=== PATIENT | male | born 1995 | race Caucasian/White ===

== ENCOUNTER 2016-07-16 16:54 | Emergency (ER) | payer MEDICAID, OTHER ==
[~2016-07-16] VITALS: Ht 167.6 cm; Wt 67.0 kg
[~2016-07-16 16:54] MED LIST: AMOX500C PO; CORT1SOL LEFT EAR; DICL50TA3 PO
[2016-07-16 16:55] VITALS: BP 139/64; PULSE 88; RESP 20; TEMP 98; O2SAT 95
--- NOTE | 2016-07-16 17:32 | PD ---
HPI Chief Complaint: ENT Complaint Time Seen by Provider: 17:29 Travel History International Travel<30 days: No Contact w/Intl Traveler<30days: No Traveled to known affect area: No History of Present Illness HPI Patient comes in complaining of cough and sore throat that began yesterday. Patient states cough is productive first thing in the morning but dry otherwise. Patient reports when he awoke today he felt very congested as well that has improved. Patient is uncertain if he had any fevers or not. Denies any nausea, vomiting, diarrhea, abdominal pain, chest pain, or shortness of breath. Denies doing anything for this prior coming to the emergency department. Patient reports his son's home sick with similar symptoms that started yesterday as well. 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) Diabetes: No Diminished Hearing: No Gastrointestinal Disorders: No Headaches: No Musculoskeletal: No Neurologic: No Psychiatric: Yes (ODD) Reproductive: No Respiratory: No Immunizations Current: Yes Migraines: No Seizures: No Thyroid Disease: No Ulcer: No Past Surgical History Appendectomy: No Cholecystectomy: No Genitourinary Surgery: No Other Surgery: Yes (ORAL SURGERY) Social History Alcohol Use: Yes (VODKA) Tobacco Use: No Substance Use: Yes (MARIJUANA & NICOTINE) Allergies-Medications (Allergen,Severity, Reaction): Coded Allergies: Bupropion (Verified Allergy, Severe, 07/16/16) Reported Meds & Prescriptions Reported Meds & Active Scripts Active Diclofenac Sodium DR (Diclofenac Sodium) 50 Mg Tabdr 50 Mg PO TID Cortisporin HC Otic Drops (Meqitgeq-Cxoxuaqmk-KO Otic Drops) 3.5-10,000-1 Mg- Units-% Soln 4 Drop LEFT EAR QID Amoxicillin 500 Mg Cap 500 Mg PO TID Review of Systems Except as stated in HPI: all other systems reviewed are Neg Physical Exam Narrative GENERAL: Well-developed, well nourished, in no acute distress, and non-ill appearing. SKIN: Warm and dry. HEAD: Atraumatic. Normocephalic. EYES: Pupils equal and round. EOMI. No scleral icterus. No injection or drainage. ENT: No nasal bleeding or discharge. Mucous membranes pink and moist. Tympanic membranes are pearly ledesma bilaterally. Uvula is midline. Posterior pharynx mildly erythematous without exudate. No tenderness to facial sinuses to palpation. NECK: Trachea midline. No cervical lymphadenopathy. Supple. No nuclear rigidity. CARDIOVASCULAR: Regular rate and rhythm. No murmur appreciated. RESPIRATORY: No accessory muscle use. No respiratory distress. Clear to auscultation. Breath sounds equal bilaterally. MUSCULOSKELETAL: No obvious deformities. No clubbing. No cyanosis. No edema. Full range of motion. NEUROLOGICAL: Awake and alert. No obvious cranial nerve deficits. Motor grossly within normal limits. Normal speech. PSYCHIATRIC: Appropriate mood and affect; insight and judgment normal. Data Data Last Documented VS Vital Signs Date Time Temp Pulse Resp B/P Pulse Ox O2 Delivery O2 Flow Rate FiO2 07/16/16 16:55 98.0 88 20 139/64 95 Room Air Orders Group A Rapid Strep Screen (07/16/16 17:28) Influenzae A/B Antigen (07/16/16 17:28) Strep Culture (Group A) (07/16/16 17:40) MDM Medical Decision Making Medical Screen Exam Complete: Yes Emergency Medical Condition: Yes Differential Diagnosis Influenza, strep pharyngitis, viral pharyngitis, upper respiratory infection, viral syndrome, other Narrative Course Patients symptom complex of cough and congestion is consistent with viral URI. The patient is non-ill appearing and is in no respiratory distress and comfortable. The patient moves air well and oxygen saturations are normal. There is no clinical evidence to suggest pneumonia at this time. Plan of care and management were discussed with the patient who agreed with plan. The patient was instructed to follow up with their physician and instructed to return if worsens, progressively worsening shortness of breath or difficulty breathing, persistent fever, chest pains or discomfort, inability to keep medication or fluids down with or without vomiting, or as needed. Patient in no obvious distress upon re-evaluation. All pertinent laboratory result(s) discussed with patient. Any questions/concerns in reference to patient diagnosis/condition discussed and clarified prior to patient's discharge. Reinforced sheer importance of close follow up with patient's primary physician or primary care clinic. Instructed patient to return to ED immediately, if symptoms return/worsen. Pt showed understanding of above instructions. Further instructions and recommendations were detailed in discharge paperwork. Pt ambulated without difficulty out of ED at discharge. Diagnosis Primary Impression: Upper respiratory infection Qualified Code: J06.9 - Viral upper respiratory tract infection Patient Instructions: General Instructions, Upper Respiratory Infection (ED) Additional Instructions: Follow-up with your primary care physician in 3-5 days for reevaluation. Use [id number] cold and flu medication as needed for symptomatic relief. Follow instructions on the packaging. Drink plenty of non-caffeinated and nonalcoholic fluids. Return to the emergency department if symptoms get worse. Disposition: 01 DISCHARGE HOME Condition: Stable Vish Laguna Jul 16, 2016 17:31
== END 2016-07-16 18:53 | disposition home or self-care (01) ==
LOC: NEPB 16:54
DX: J06.9 Acute upper respiratory infection, unspecified (principal); R05 Cough
CPT/HCPCS: 87081; 87804; 87880; 99283

== ENCOUNTER 2016-07-18 07:56 | Emergency (ER) | payer MEDICAID, OTHER ==
[~2016-07-18] VITALS: Ht 170.2 cm; Wt 68.0 kg
[2016-07-18 07:57] VITALS: BP 136/67; PULSE 86; RESP 15; TEMP 98.1; O2SAT 98
[2016-07-18] MEDS ORDERED: PHEN1LIQ60 (08:23)
[2016-07-18] MEDS ORDERED: MOME17I EACH NARE (08:33)
[2016-07-18] MEDS ORDERED: BENZ100 PO (08:33)
--- NOTE | 2016-07-18 08:34 | PD ---
HPI Chief Complaint: Cold / Flu Symptoms Time Seen by Provider: 08:27 Travel History International Travel<30 days: No Contact w/Intl Traveler<30days: No Traveled to known affect area: No History of Present Illness HPI 21-year-old male presents to the emergency Department with complaint of cough, nasal congestion, sore throat, fever 3 days. Reports MAXIMUM TEMPERATURE of 101.0. Denies ear pain. Denies lump in throat, difficulty swallowing, unusual drooling. Denies wheezing. Denies chest pain, shortness of breath. Denies nausea, vomiting. Has taken NyQuil with minimal relief of symptoms. His son has similar symptoms. Has not received influenza vaccine. Allergies to bupropion. Denies significant past medical history. No other modifying factors or associated signs and symptoms. 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) Diabetes: No Diminished Hearing: No Gastrointestinal Disorders: No Headaches: No Musculoskeletal: No Neurologic: No Psychiatric: Yes (ODD) Reproductive: No Respiratory: No Immunizations Current: Yes Migraines: No Seizures: No Thyroid Disease: No Ulcer: No Past Surgical History Appendectomy: No Cholecystectomy: No Genitourinary Surgery: No Other Surgery: Yes (ORAL SURGERY) Social History Alcohol Use: Yes (VODKA) Tobacco Use: No Substance Use: Yes (MARIJUANA & NICOTINE) Allergies-Medications (Allergen,Severity, Reaction): Coded Allergies: Bupropion (Verified Allergy, Severe, 07/16/16) Reported Meds & Prescriptions Reported Meds & Active Scripts Active Tessalon Perles (Benzonatate) 100 Mg Cap 100 Mg PO TID PRN Nasonex Nasal [place] (Mometasone Furoate) 50 Mcg/Act Naspr 2 [place] EACH NARE DAILY PRN Reported Nyquil Severe Cold/Flu Liq (Kdiqhsmwpcfib-Cierjiqfzu-XP-Apap Liq) 5-6.25-10-325 Mg/15 Ml Liq Review of Systems Except as stated in HPI: all other systems reviewed are Neg Physical Exam Narrative GENERAL: Well-nourished, well-developed male patient, in no acute distress; afebrile, nontoxic-appearing SKIN: Warm and dry. No rash. HEAD: Atraumatic. Normocephalic. EYES: Pupils equal and round at 3 mm with brisk reaction. No scleral icterus. No injection or drainage. PERRLA. ENT: Mucosa pink and moist. Oropharynx with erythema; without edema or exudates. No uvular edema. No uvular, palatal, or tonsillar deviation. Airway patent. Nasal congestion noted. EARS: Bilateral pinnae and external canals appear within normal limits. Bilateral tympanic membranes without erythema, dullness or perforation. NECK: Trachea midline. No lymphadenopathy. CARDIOVASCULAR: Regular rate and rhythm. No murmur appreciated. RESPIRATORY: No accessory muscle use. Clear to auscultation. Breath sounds equal bilaterally. GASTROINTESTINAL: Abdomen soft, non-tender, nondistended. Hepatic and splenic margins not palpable. Bowel sounds are active 4 quadrants. MUSCULOSKELETAL: No obvious deformities. No clubbing. No cyanosis. No edema. NEUROLOGICAL: Awake and alert. Oriented 3. No obvious cranial nerve deficits. Motor grossly within normal limits. Normal speech. Moves all extremities. 5/5 strength to all extremities. PSYCHIATRIC: Appropriate mood and affect; insight and judgment normal. Data Data Last Documented VS Vital Signs Date Time Temp Pulse Resp B/P Pulse Ox O2 Delivery O2 Flow Rate FiO2 07/18/16 07:57 98.1 86 15 136/67 98 MDM Medical Decision Making Medical Screen Exam Complete: Yes Emergency Medical Condition: Yes Medical Record Reviewed: Yes Differential Diagnosis Viral illness, influenza, sinusitis, strep pharyngitis Narrative Course 21-year-old male physical exam consistent with viral illness. Patient is afebrile and nontoxic-appearing. Reports MAXIMUM TEMPERATURE 101.0 home. Patient complaining of sore throat. Oropharynx is erythemic and without exudate or edema. Influenza and rapid strep ordered. 0845: Influenza and rapid strep canceled. Patient was seen here on 07/16 and influenza and rapid strep were negative. Patient requesting work release. Work release note provided. Discussed viral illness and symptomatic management patient verbalized understanding and agreement. Patient is medically cleared and stable for discharge. Discussed reasons to return to the emergency department. Instructed patient to follow up with primary care provider. Patient agrees with treatment plan. The patients vital signs are stable and the patient is stable for outpatient follow-up and treatment. Patient discharged home, stable and in no acute distress. Diagnosis Primary Impression: Upper respiratory infection Qualified Code: J06.9 - Upper respiratory tract infection, unspecified type Admitting Information Admitting Physician Requests: Observation Referrals: Primary Care Physician Patient Instructions: Cold Symptoms (ED), General Instructions, Safe Use of Cough and Cold Medicines (ED) Departure Forms: Tests/Procedures, Work Release Enter return to work date: Jul 18, 2016 Additional Instructions: Ibuprofen or Tylenol as instructed and as needed for fever/pain Xtrb-nwr-fwrhkcz cough and cold medications as directed and as needed for symptom management Get plenty of sleep/rest Drink plenty of fluids to prevent dehydration; popsicles and Gatorade Use an air humidifier/turn off ceiling fans Follow-up with primary care provider Return immediately to the emergency department with worsening of symptoms Med/Other Pt SpecificInfo: Prescription(s) given Scripts Benzonatate (Tessalon Perles)100 Mg Azh390 Mg PO TID PRN (COUGH) #20 CAP Ref 0 Prov:Paulina Hsu 07/18/16 Mometasone Nasal [place] (Nasonex Nasal [place])50 Mcg/Act Naspr2 [place] EACH NARE DAILY PRN (NASAL CONGESTION) #1 BOTTLE Ref 0 Prov:Paulina Hsu 07/18/16 Disposition: 01 DISCHARGE HOME Condition: Stable Paulina Hsu Jul 18, 2016 08:33
== END 2016-07-18 09:09 | disposition home or self-care (01) ==
LOC: NEPB 07:56
DX: J06.9 Acute upper respiratory infection, unspecified (principal)
CPT/HCPCS: 99282

== ENCOUNTER 2016-09-21 14:54 | Emergency (ER) | payer MEDICAID, OTHER ==
[~2016-09-21] VITALS: Ht 167.6 cm; Wt 65.0 kg
[~2016-09-21 14:54] MED LIST changes: -AMOX500C PO; +BENZ100 PO; -CORT1SOL LEFT EAR; -DICL50TA3 PO; +MOME17I EACH NARE; +PHEN1LIQ60
[2016-09-21 14:55] VITALS: BP 149/82; PULSE 78; RESP 17; TEMP 98.2; O2SAT 99
--- NOTE | 2016-09-21 15:04 | PD ---
Physical Exam Time Seen by Provider: 15:02 Narrative 21 y/o male presents for evaluation of dental pain/pressure which started after diving 3 days ago. Vital signs reviewed. Seen at triage desk. Awaiting bed placement. Data Data Last Documented VS Vital Signs Date Time Temp Pulse Resp B/P Pulse Ox O2 Delivery O2 Flow Rate FiO2 09/21/16 14:55 98.2 78 17 149/82 99 MDM Medical Record Reviewed: Yes Supervised Visit with HAYDEN: Matthew Carrasco September 21, 2016 15:04
[2016-09-21] MEDS ORDERED: AMOX500C PO (15:53)
[2016-09-21] MEDS ORDERED: IBUP800T23 PO (15:53)
[2016-09-21] MEDS ORDERED: PERI0.126 SWISH-SPIT (15:53)
--- NOTE | 2016-09-21 15:53 | PD ---
HPI Chief Complaint: Oral / Dental Pain or Problem Time Seen by Provider: 15:51 Travel History International Travel<30 days: No Contact w/Intl Traveler<30days: No Traveled to known affect area: No History of Present Illness HPI 21-year-old male presents emergency department with complaint of left upper tooth pain and a small bump on his gum that he noticed today and with worsening of pain today. Denies fever, vomiting. Denies facial edema, erythema. Took some Tylenol with some relief of pain. Allergies to bupropion. Has no other medical complaints. No other modifying factors or associated signs and symptoms. 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) Diabetes: No Diminished Hearing: No Gastrointestinal Disorders: No Headaches: No Musculoskeletal: No Neurologic: No Psychiatric: Yes (ODD) Reproductive: No Respiratory: No Immunizations Current: Yes Migraines: No Seizures: No Thyroid Disease: No Ulcer: No Past Surgical History Appendectomy: No Cholecystectomy: No Genitourinary Surgery: No Other Surgery: Yes (ORAL SURGERY) Social History Alcohol Use: Yes (VODKA) Tobacco Use: No Substance Use: Yes (MARIJUANA & NICOTINE) Allergies-Medications (Allergen,Severity, Reaction): Coded Allergies: Bupropion (Verified Allergy, Severe, 09/21/16) Reported Meds & Prescriptions Reported Meds & Active Scripts Active Peridex Liq (Chlorhexidine Gluconate (Mouth) Liq) 0.12% Soln 15 Ml SWISH-SPIT BID 10 Days Ibuprofen 800 Mg Tab 800 Mg PO Q6HR PRN Amoxicillin 500 Mg Cap 500 Mg PO BID 10 Days Review of Systems Except as stated in HPI: all other systems reviewed are Neg Physical Exam Narrative GENERAL: Well-nourished, well-developed patient, in no acute distress; afebrile , nontoxic-appearing SKIN: Warm and dry. HEAD: Atraumatic. Normocephalic. No facial edema, erythema, tenderness on palpation. No lymphadenopathy. EYES: Pupils equal and round. No scleral icterus. No injection or drainage. ENT: Mucosa pink and moist. Airway patent. MOUTH: Mucous membranes moist, no lesions, tongue and gums appear normal. Left upper tooth #12 with tenderness on palpation; just above the tooth there is a pinpoint pustule draining purulent drainage; the gingiva is mildly edematous and with erythema. NECK: Trachea midline. No lymphadenopathy. CARDIOVASCULAR: Regular rate. RESPIRATORY: No accessory muscle use. GASTROINTESTINAL: Flat. MUSCULOSKELETAL: No obvious deformities. No clubbing. No cyanosis. No edema. NEUROLOGICAL: Awake and alert. Oriented 3. No obvious cranial nerve deficits. Motor grossly within normal limits. Normal speech. PSYCHIATRIC: Appropriate mood and affect; insight and judgment normal. Data Data Last Documented VS Vital Signs Date Time Temp Pulse Resp B/P Pulse Ox O2 Delivery O2 Flow Rate FiO2 09/21/16 14:55 98.2 78 17 149/82 99 MDM Medical Decision Making Medical Screen Exam Complete: Yes Emergency Medical Condition: Yes Medical Record Reviewed: Yes Differential Diagnosis Dental abscess, dentalgia, dental caries Narrative Course 21-year-old male with left upper tooth #12 dentalgia and a small dental abscess that is draining purulent drainage. Patient is afebrile and nontoxic- appearing. Denies fever, vomiting. No facial edema or erythema. No lymphadenopathy. Patient provided with an emergency dental information sheet. Amoxicillin, Peridex mouth rinse, ibuprofen prescribed for home. Instructed to patient to follow up with dentist. Patient verbalizes understanding and agreement with treatment plan. Patient is medically cleared and stable for discharge. Discussed reasons to return to the emergency department. Instructed patient to follow up with primary care provider. Patient agrees with treatment plan. The patients vital signs are stable and the patient is stable for outpatient follow-up and treatment. Patient discharged home, stable and in no acute distress. Diagnosis Primary Impression: Dentalgia Additional Impression: Dental abscess Referrals: Dentist Primary Care Physician Patient Instructions: Dental Abscess (ED), Dental Caries (ED), General Instructions, Toothache (ED) Departure Forms: Tests/Procedures, Work Release Enter return to work date: September 22, 2016 Additional Instructions: Complete full course of antibiotics Ibuprofen as directed and as needed to reduce pain and inflammation Use Peridex as directed for oral hygiene Warm compresses to the affected area Follow-up with dentist Follow-up with primary care provider Return to emergency department immediately with worsening of symptoms Med/Other Pt SpecificInfo: Prescription(s) given Scripts Chlorhexidine Gluconate (Mouth) Liq (Peridex Liq)0.12% Soln15 Ml SWISH-SPIT BID 10 Days Ref 0 Prov:RassPaulina sweet 09/21/16 Ibuprofen 800 Mg [id number] Mg PO Q6HR PRN (PAIN) #30 TAB Ref 0 Prov:Paulina Hsu 09/21/16 Amoxicillin 500 Mg Rga940 Mg PO BID 10 Days Ref 0 Prov:Paulina Hsu 09/21/16 Disposition: 01 DISCHARGE HOME Condition: Stable Paulina Hsu September 21, 2016 15:53
== END 2016-09-21 16:09 | disposition home or self-care (01) ==
LOC: NEPK 14:54
DX: K04.7 Periapical abscess without sinus (principal)
CPT/HCPCS: 99282

== ENCOUNTER 2017-01-18 16:25 | Emergency (ER) | payer MEDICAID ==
[~2017-01-18] VITALS: Ht 167.6 cm; Wt 72.0 kg
[~2017-01-18 16:25] MED LIST changes: +AMOX500C PO; -BENZ100 PO; +IBUP800T23 PO; -MOME17I EACH NARE; +PERI0.126 SWISH-SPIT; -PHEN1LIQ60
[2017-01-18 16:27] VITALS: BP 121/64; PULSE 73; RESP 12; TEMP 97.9; O2SAT 98
--- NOTE | 2017-01-18 16:47 | PD ---
Physical Exam Date Seen by Provider: Jan 18, 2017 Time Seen by Provider: 16:46 Narrative 21 yo male here for evaluation of left ear pain. x 2 days. no injuries. No cough or congestion. Vitals are stable in triage. Awaiting bed placement. Data Data Last Documented VS Vital Signs Date Time Temp Pulse Resp B/P (MAP) Pulse Ox O2 Delivery O2 Flow Rate FiO2 01/18/17 16:27 97.9 73 12 121/64 (83) 98 MDM Medical Record Reviewed: Yes Supervised Visit with HAYDNE: Jimmie Hurst Jan 18, 2017 16:47
[2017-01-18] MEDS ORDERED: OFLO0.3D9 LEFT EAR (20:19)
--- NOTE | 2017-01-18 20:23 | PD ---
HPI Chief Complaint: ENT Complaint Time Seen by Provider: 20:07 Travel History International Travel<30 days: No Contact w/Intl Traveler<30days: No Traveled to known affect area: No History of Present Illness HPI 21-year-old male presents for evaluation of left ear pain. 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 He reports over the past few days he has had left ear pain. The pain is a throbbing pain in the left ear canal which is constant, no relieving factors. Denies any drainage. He reports chronic mild tinnitus, denies any acute tinnitus or pressure changes in the ear. He denies cough, congestion, sore throat, fevers or chills. No other complaints. 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) Diabetes: No Diminished Hearing: No Gastrointestinal Disorders: No Headaches: No Musculoskeletal: No Neurologic: No Psychiatric: Yes (ODD) Reproductive: No Respiratory: No Immunizations Current: Yes Migraines: No Seizures: No Thyroid Disease: No Ulcer: No Past Surgical History Appendectomy: No Section: Yes (emergency) Cholecystectomy: No Genitourinary Surgery: No Oral Surgery: Yes Other Surgery: Yes (ORAL SURGERY) Social History Alcohol Use: Yes Tobacco Use: No Substance Use: Yes (MARIJUANA) Allergies-Medications (Allergen,Severity, Reaction): Coded Allergies: bupropion (Unverified Allergy, Severe, 01/18/17) Reported Meds & Prescriptions Reported Meds & Active Scripts Active Ofloxacin Otic Drops 0.3 % Drops 10 Drop LEFT EAR DAILY 10 Days Peridex Liq (Chlorhexidine Gluconate (Mouth) Liq) 0.12% Soln 15 Ml SWISH-SPIT BID 10 Days Ibuprofen 800 Mg Tab 800 Mg PO Q6HR PRN Amoxicillin 500 Mg Cap 500 Mg PO BID 10 Days Review of Systems General / Constitutional: No: Fever, Chills HENT: Positive: Earache, No: Congestion, Ear Discharge Respiratory: No: Cough Physical Exam Narrative GENERAL: Well-nourished male in no acute distress SKIN: Warm and dry. HEAD: Atraumatic. Normocephalic. EYES: Pupils equal and round. No scleral icterus. No injection or drainage. ENT: No nasal bleeding or discharge. Mucous membranes pink and moist. Pain with left otic manipulation. The external ear canal is mildly erythematous. There is some cerumen debris in the proximal ear canal obscuring part of the tympanic membrane. There is no mastoid tenderness. NECK: Trachea midline. No JVD. No lymphadenopathy. CARDIOVASCULAR: Regular rate and rhythm. No murmur appreciated. RESPIRATORY: No accessory muscle use. Clear to auscultation. Breath sounds equal bilaterally. Data Data Last Documented VS Vital Signs Date Time Temp Pulse Resp B/P (MAP) Pulse Ox O2 Delivery O2 Flow Rate FiO2 01/18/17 16:27 97.9 73 12 121/64 (83) 98 MDM Medical Decision Making Medical Screen Exam Complete: Yes Emergency Medical Condition: Yes Medical Record Reviewed: Yes Differential Diagnosis Otitis externa, otitis media, perforated tympanic membrane, mastoiditis Narrative Course Physical examination is consistent with left otitis external. I'm able to visualize part of the ear canal which is intact. He doesn't have any symptoms that would be suggestive of a perforated tympanic membrane however the remaining portion of the tympanic membrane is obscured by the cerumen. The plan would be to prescribe the patient ofloxacin otic solution and have him follow-up with his primary care physician in one week for recheck. He is stable for discharge. Diagnosis Primary Impression: Left otitis externa Qualified Codes: H60.502 - Unspecified acute noninfective otitis externa, left ear Departure Forms: Tests/Procedures, Work Release Special Instructions: Avoid getting water in left ear canal until cleared by primary care physician. Additional Instructions: Medication as prescribed. Avoid getting water in left ear canal. Follow-up with primary care physician next week for recheck. Return for any emergent medical conditions. Med/Other Pt SpecificInfo: Prescription(s) given Scripts Ofloxacin Otic Drops (Ofloxacin Otic Drops) 0.3 % Drops 10 DROP LEFT EAR DAILY for Infection for 10 Days, #1 BOTTLE 0 Refills Prov: Jeremías Robertson MD 01/18/17 Disposition: 01 DISCHARGE HOME Condition: Stable Matthew Nixon Jan 18, 2017 20:23
== END 2017-01-18 20:35 | disposition home or self-care (01) ==
LOC: NEPD 16:25
DX: H60.92 Unspecified otitis externa, left ear (principal); F90.9 Attention-deficit hyperactivity disorder, unspecified type; F31.9 Bipolar disorder, unspecified; I45.6 Pre-excitation syndrome; F91.3 Oppositional defiant disorder; Z79.1 Long term (current) use of non-steroidal anti-inflammatories (NSAID); Z79.899 Other long term (current) drug therapy
CPT/HCPCS: 99283

== ENCOUNTER 2017-02-06 11:59 | Emergency (ER) | payer MEDICAID ==
[~2017-02-06] VITALS: Ht 167.6 cm; Wt 75.0 kg
[~2017-02-06 11:59] MED LIST changes: +OFLO0.3D9 LEFT EAR
[2017-02-06 12:01] VITALS: BP 118/63; PULSE 70; RESP 20; TEMP 98.5; O2SAT 97
[2017-02-06] MEDS ORDERED: CIPR0.3S LEFT EAR (12:17)
[2017-02-06] MEDS ORDERED: CIPR500T2 PO (12:17)
[2017-02-06] MEDS ORDERED: IBUP800T23 PO (12:17)
--- NOTE | 2017-02-06 12:19 | PD ---
HPI Chief Complaint: ENT Complaint Time Seen by Provider: 12:13 Travel History International Travel<30 days: No Contact w/Intl Traveler<30days: No Traveled to known affect area: No History of Present Illness HPI 21-year-old male presents emergency Department with complaint of re-cream left ear pain. He said he was seen here a couple weeks ago and had an ear infection which he used the ear drops for and that went away. The ear pain is coming back over the past few days. 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 Denies fever, vomiting. Denies sore throat. Reports mild nasal congestion. Denies cough. Symptoms are mild in severity. Allergies to bupropion. 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) Diabetes: No Diminished Hearing: No Gastrointestinal Disorders: No Headaches: No Musculoskeletal: No Neurologic: No Psychiatric: Yes (ODD) Reproductive: No Respiratory: No Immunizations Current: Yes Migraines: No Seizures: No Thyroid Disease: No Ulcer: No Past Surgical History Appendectomy: No Section: Yes (emergency) Cholecystectomy: No Genitourinary Surgery: No Oral Surgery: Yes Other Surgery: Yes (ORAL SURGERY) Social History Alcohol Use: Yes Tobacco Use: No Substance Use: Yes (MARIJUANA) Allergies-Medications (Allergen,Severity, Reaction): Coded Allergies: bupropion (Unverified Allergy, Severe, 01/18/17) Reported Meds & Prescriptions Reported Meds & Active Scripts Active Ibuprofen 800 Mg Tab 800 Mg PO Q6HR PRN Ciprofloxacin (Ciprofloxacin HCl) 500 Mg Tab 500 Mg PO BID 10 Days Ciprodex Otic Drops (Ciprofloxacin-Dexamethasone Otic Drops) 0.3-0.1% Susp 4 Drop LEFT EAR BID 7 Days Ofloxacin Otic Drops 0.3 % Drops 10 Drop LEFT EAR DAILY 10 Days Peridex Liq (Chlorhexidine Gluconate (Mouth) Liq) 0.12% Soln 15 Ml SWISH-SPIT BID 10 Days Ibuprofen 800 Mg Tab 800 Mg PO Q6HR PRN Amoxicillin 500 Mg Cap 500 Mg PO BID 10 Days Review of Systems Except as stated in HPI: all other systems reviewed are Neg Physical Exam Narrative GENERAL: Well-nourished, well-developed male patient, in no acute distress; afebrile, nontoxic-appearing SKIN: Warm and dry. No rash. HEAD: Atraumatic. Normocephalic. EYES: Pupils equal and round. No scleral icterus. No injection or drainage. EARS: Bilateral pinnae and external canals appear within normal limits. Left inner ear canal is erythematous and mildly edematous. Bilateral tympanic membrane without erythema, loss of landmarks, and without dullness; without perforation. ENT: Mucosa pink and moist. Oral Pharynx without erythema; without edema or exudates. No uvular edema. No uvular, palatal, or tonsillar deviation. Airway patent. NECK: Trachea midline. No lymphadenopathy. CARDIOVASCULAR: Regular rate. RESPIRATORY: No accessory muscle use. GASTROINTESTINAL: Flat. MUSCULOSKELETAL: No obvious deformities. No clubbing. No cyanosis. No edema. NEUROLOGICAL: Awake and alert. Oriented 3. No obvious cranial nerve deficits. Motor grossly within normal limits. Normal speech. Moves all extremities. 5/5 strength to all extremities. PSYCHIATRIC: Appropriate mood and affect; insight and judgment normal. Data Data Last Documented VS Vital Signs Date Time Temp Pulse Resp B/P (MAP) Pulse Ox O2 Delivery O2 Flow Rate FiO2 02/06/17 12:01 98.5 70 20 118/63 (81) 97 Room Air [facility] Medical Decision Making Medical Screen Exam Complete: Yes Emergency Medical Condition: Yes Medical Record Reviewed: Yes Differential Diagnosis Otitis media, otitis externa, foreign body, cerumen impaction Narrative Course 21-year-old male physical exam consistent with left otitis externa. She is afebrile nontoxic appearing. Denies fever, vomiting. Patient was seen here on January 18 and was treated for left otitis externa. He said it did resolve but over the past few days reoccurred. Ciprofloxacin, Ciprodex, ibuprofen prescribed for home. Instructed patient to follow up with primary care provider. Patient verbalizes understanding and agreement with treatment plan. Patient is medically cleared and stable for discharge. Discussed reasons to return to the emergency department. Patient agrees with treatment plan. The patients vital signs are stable and the patient is stable for outpatient follow- up and treatment. Patient discharged home, stable and in no acute distress. Diagnosis Primary Impression: Otitis externa Qualified Codes: H60.92 - Unspecified otitis externa, left ear Referrals: Ear / Nose / Throat Specialist Primary Care Physician Patient Instructions: General Instructions, Otitis Externa (ED) Additional Instructions: Take antibiotics as prescribed and complete full course Ibuprofen or Tylenol as directed and as needed to reduce pain and fever [id number] antihistamines or decongestants as directed and as needed for symptom management Avoid getting water in the ears Do not put anything in the ears; including Q-tips Follow-up with primary care provider Return to the emergency department immediately with worsening of symptoms Med/Other Pt SpecificInfo: Prescription(s) given Scripts Ibuprofen (Ibuprofen) 800 Mg Tab 800 MG PO Q6HR Y for PAIN, #30 TAB 0 Refills Prov: Paulina Hsu 02/06/17 Ciprofloxacin (Ciprofloxacin) 500 Mg Tab 500 MG PO BID for Infection for 10 Days, #20 TAB 0 Refills Prov: Paulina Hsu 02/06/17 Ciprofloxacin-Dexamethasone Otic Drops (Ciprodex Otic Drops) 0.3-0.1% Susp 4 DROP LEFT EAR BID for Infection for 7 Days, #1 BOTTLE 0 Refills Prov: Paulina Hsu 02/06/17 Disposition: 01 DISCHARGE HOME Condition: Stable Paulina Hsu Feb 06, 2017 12:19
== END 2017-02-06 12:30 | disposition home or self-care (01) ==
LOC: NEPK 11:59
DX: H60.92 Unspecified otitis externa, left ear (principal)
CPT/HCPCS: 99283